=== PATIENT | male | born 1950 | race Caucasian/White ===

== ENCOUNTER 2018-03-20 12:27 | Emergency (ER) | END 2018-03-20 16:04 | disposition home or self-care (01) ==

== ENCOUNTER 2018-03-30 12:13 | Emergency (ER) | END 2018-03-30 13:57 | disposition home or self-care (01) ==

== ENCOUNTER 2018-11-07 11:57 | Emergency (ER) | payer MEDICARE, OTHER ==
[~2018-11-07] VITALS: Ht 172.7 cm; Wt 63.6 kg
[~2018-11-07 11:57] MED LIST: BEN25 PO; CEPH500C PO; CLIN300C10 PO; METHODONE; MUPI22OI2 TOP; TRIA15CR55 TOP
[2018-11-07 11:59] VITALS: Ht 172.7 cm; Wt 63.6 kg
[2018-11-07] MEDS ORDERED: HYDROmorphONE 2 MG/ML SYG IV ONE (12:30)
[2018-11-07] MEDS ORDERED: PROPOFOL 200 MG INJ IV ONE (12:30)
[2018-11-07] MEDS ORDERED: ONDANSETRON 4 MG INJ IV ONE (12:30)
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
[2018-11-07] MEDS ORDERED: IOHEXOL 350MG/ML 50 ML BTL ONE (14:34)
[2018-11-07] MEDS ORDERED: SOD CHLORIDE 0.9% 100 ML ONE (14:34)
[2018-11-07] MEDS ORDERED: IOHEXOL 100 ML ONE (14:34)
[2018-11-07] MEDS ORDERED: HYDROmorphONE 1 MG/ML SYG IV STA (15:21)
[2018-11-07] MEDS ORDERED: ONDANSETRON 4 MG INJ IV STA (15:21)
[2018-11-07] MEDS ORDERED: NICARDipine HCL 30 MG CAPSULE PO ONE (18:30)
[2018-11-07] MEDS ORDERED: HYDR-4011 PO (18:56)
[2018-11-07] MEDS ORDERED: METO-319 PO (18:56)
[2018-11-07 19:09] VITALS: BP 183/106; PULSE 72; RESP 18
== END 2018-11-07 19:12 | disposition home or self-care (01) ==
LOC: E/R 11:57
DX: S52.91XA Unspecified fracture of right forearm, initial encounter for closed fracture (principal); S52.201A Unspecified fracture of shaft of right ulna, initial encounter for closed fracture; I71.2 Thoracic aortic aneurysm, without rupture; F17.210 Nicotine dependence, cigarettes, uncomplicated; R51 Headache; V13.4XXA Pedal cycle driver injured in collision with car, pick-up truck or van in traffic accident, initial encounter
CPT/HCPCS: 25675; 36415; 70450; 71045; 71275; 73110; 75635; 80048; 94770; 96374; 96376; 99285; J1170; Q9967; J2405